=== PATIENT | male | born 1950 | race Caucasian/White ===

== ENCOUNTER 2016-07-29 14:56 | Inpatient (IN) | payer SELFPAY ==
[~2016-07-29] VITALS: Ht 182.9 cm; Wt 112.5 kg
[2016-07-29] VITALS (9 sets, daily range): BP systolic 152–191; BP diastolic 72–93
[2016-07-29 15:40] LABS: EOSINOPHIL (%) 0.6 % (0-5); EOSINOPHIL COUNT 0.1 K/uL (0-0.3); HEMATOCRIT 42.8 % (38.0-50.0); IMMATURE GRANULOCYTE (%) 0.2 % (0.0-0.7); IMMATURE GRANULOCYTE COUNT 0.2 K/uL; LYMPHOCYTE COUNT 0.8 K/uL (1.0-2.8); MCH 31.4 PG (29.0-34.0); MCV 89.5 FL (86-99); MEAN PLAT.VOLUME 9.4 uM^3 (9.0-12.4); MONOCYTE (%) 6.4 % (3-12); MONOCYTE COUNT 0.6 K/uL (0-0.8); NEUTROPHIL (%) 84.3 % (45-76); PLATELET COUNT 250 K/uL (156-360); RBC DIS.WIDTH-CV 11.9 % (11.8-14.6); RBC DIS.WIDTH-SD 38.2 % (39-53); RED BLOOD COUNT 4.78 M/uL (4.00-5.50); WHITE BLOOD COUNT 9.4 K/uL (4.1-10.2)
[2016-07-29 15:56] LABS: CHLORIDE 100 mEq/L (99-109); POTASSIUM 3.9 mEq/L (3.7-5.4); SODIUM 140 mEq/L (136-147)
[2016-07-29 15:57] LABS: GLUCOSE 224 mg/dL (70-99)
[2016-07-29 15:59] LABS: ANION GAP 13 MEQ/L (2-14)
[2016-07-29 16:01] LABS: GFR ESTIMATE (CALCULATED) > 59 mL/min/
[2016-07-29 16:02] LABS: TROP-I INTERPRETATION NEGATIVE; TROPONIN-I 0.02 ng/mL (0.0-0.30); UREA NITROGEN (BUN) 13 mg/dL (9-23)
[2016-07-29] MEDS ORDERED: PLEXUS BIO CLEANSE PO (17:18)
[2016-07-29 18:46] LABS: ADD MIUA? NO; BILIRUBIN NEGATIVE; BLOOD NEGATIVE; COLOR YELLOW ((YELLOW)); GLUCOSE (STRIP) 50; KETONES 20; LEUKOCYTES NEGATIVE; NITRITE NEGATIVE; PROTEIN (STRIP) NEGATIVE; SPECIFIC GRAVITY 1.016 (1.000-1.030); UROBILINOGEN 0.2 MG/DL (0.2-1.0)
[2016-07-29 20:48] LABS: METH RESISTANT S AUREUS PCR NEGATIVE (NEGATIVE)
[2016-07-29 20:51] LABS: PROBE CHECK PASS; SPECIMEN PROCESSING CONTROL PASS
[2016-07-30] VITALS (22 sets, daily range): BP systolic 120–190; BP diastolic 57–93
[2016-07-30 02:06] LABS: POINT-OF-CARE METER ID UU13113731
[2016-07-30 06:19] LABS: INTER. NORMALIZED RATIO 1.1; PROTHROMBIN TIME 10.9 (9.2-11.2); PTT 24.5 (25-32)
[2016-07-30 06:38] LABS: HEMATOCRIT 44.5 % (38.0-50.0); MCH 31.9 PG (29.0-34.0); MCHC 34.8 G/DL (30.0-36.0); MCV 91.6 FL (86-99); PLATELET COUNT 237 K/uL (156-360); RBC DIS.WIDTH-CV 12.2 % (11.8-14.6); RBC DIS.WIDTH-SD 40.8 % (39-53); RED BLOOD COUNT 4.86 M/uL (4.00-5.50)
[2016-07-30 06:39] LABS: ALKALINE PHOSPHATASE 81 IU/L (3-129); ANION GAP 10 MEQ/L (2-14); CHLORIDE 102 MEQ/L (99-109); GFR ESTIMATE (CALCULATED) > 59 mL/min/; GLUCOSE 232 mg/dL (70-99); POTASSIUM 3.2 MEQ/L (3.7-5.4); SAMPLE HEMOLYSIS CHECK 0; SAMPLE ICTERIC CHECK 0; SAMPLE LIPEMIA CHECK 0; SODIUM 140 MEQ/L (136-147); TOTAL BILIRUBIN 1.5 MG/DL (0.0-1.0); UREA NITROGEN (BUN) 9 mg/dL (9-23); WHITE BLOOD COUNT 12.5 K/uL (4.1-10.2)
[2016-07-30 11:02] LABS: Estimated Average Glucose 214 mg/dL (70-123); HEMOGLOBIN A1c (GLYCOHEMOGLOB) 9.1 % HGB (Below 5.7)
[2016-07-31] VITALS (25 sets, daily range): BP systolic 125–178; BP diastolic 64–95
[2016-07-31 09:06] LABS: POINT-OF-CARE METER ID UU13113748
[2016-07-31 11:49] LABS: ALKALINE PHOSPHATASE 86 IU/L (3-129); ANION GAP 11 MEQ/L (2-14); CHLORIDE 104 MEQ/L (99-109); GFR ESTIMATE (CALCULATED) > 59 mL/min/; MAGNESIUM 2.1 mg/dl (1.3-2.7); POTASSIUM 3.7 MEQ/L (3.7-5.4); SAMPLE HEMOLYSIS CHECK 0; SAMPLE ICTERIC CHECK 0; SAMPLE LIPEMIA CHECK 0; SODIUM 135 MEQ/L (136-147); TOTAL BILIRUBIN 1.2 MG/DL (0.0-1.0); UREA NITROGEN (BUN) 18 mg/dL (9-23)
[2016-07-31 11:59] LABS: GLUCOSE 349 mg/dL (70-99)
[2016-07-31 12:38] LABS: POINT-OF-CARE METER ID UU13113748
[2016-07-31 18:05] LABS: POINT-OF-CARE METER ID UU13113748
[2016-07-31 21:45] LABS: POINT-OF-CARE METER ID UU13113748
[2016-08-01] VITALS (16 sets, daily range): BP systolic 0–160; BP diastolic 0–98
[2016-08-01 02:27] LABS: POINT-OF-CARE METER ID UU13113731
[2016-08-01 06:00] LABS: POINT-OF-CARE METER ID UU13113731
[2016-08-01 10:18] LABS: POINT-OF-CARE METER ID UU13113731
[2016-08-02 03:13] VITALS: BP 150/90
[2016-08-02 06:16] LABS: POINT-OF-CARE METER ID UU14174216
[2016-08-02 08:10] VITALS: BP 184/82
[2016-08-02 08:45] LABS: HEMATOCRIT 42.9 % (38.0-50.0); MCH 30.8 PG (29.0-34.0); MCHC 33.8 G/DL (30.0-36.0); MCV 91.1 FL (86-99); PLATELET COUNT 248 K/uL (156-360); RBC DIS.WIDTH-CV 12.4 % (11.8-14.6); RED BLOOD COUNT 4.71 M/uL (4.00-5.50); WHITE BLOOD COUNT 16.1 K/uL (4.1-10.2)
[2016-08-02 09:23] LABS: ANION GAP 8 MEQ/L (2-14); CHLORIDE 108 MEQ/L (99-109); GFR ESTIMATE (CALCULATED) > 59 mL/min/; GLUCOSE 217 mg/dL (70-99); POTASSIUM 4.2 MEQ/L (3.7-5.4); SAMPLE HEMOLYSIS CHECK 0; SAMPLE ICTERIC CHECK 0; SAMPLE LIPEMIA CHECK 0; SODIUM 139 MEQ/L (136-147)
[2016-08-02 09:25] LABS: UREA NITROGEN (BUN) 30 mg/dL (9-23)
[2016-08-02 10:21] LABS: POINT-OF-CARE METER ID UU13113698; POINT-OF-CARE USER ID NUTSLF44
[2016-08-02 11:30] VITALS: BP 162/88
[2016-08-02 14:20] LABS: POINT-OF-CARE METER ID UU14174216; POINT-OF-CARE USER ID NUTSLF44
[2016-08-02 15:42] VITALS: BP 162/84
[2016-08-02 17:41] LABS: POINT-OF-CARE USER ID NUTSLF44
[2016-08-02 20:04] VITALS: BP 168/80
[2016-08-02 22:31] VITALS: BP 162/70
[2016-08-03 04:17] VITALS: BP 162/70
[2016-08-03 06:48] LABS: HEMATOCRIT 43.5 % (38.0-50.0); MCH 30.2 PG (29.0-34.0); MCHC 33.3 G/DL (30.0-36.0); MCV 90.6 FL (86-99); MEAN PLAT.VOLUME 10.2 uM^3 (9.0-12.4); PLATELET COUNT 259 K/uL (156-360); RBC DIS.WIDTH-CV 12.4 % (11.8-14.6); RBC DIS.WIDTH-SD 40.7 % (39-53); WHITE BLOOD COUNT 13.2 K/uL (4.1-10.2)
[2016-08-03 07:05] LABS: ANION GAP 8 MEQ/L (2-14); CHLORIDE 107 MEQ/L (99-109); GFR ESTIMATE (CALCULATED) > 59 mL/min/; GLUCOSE 251 mg/dL (70-99); POTASSIUM 3.7 MEQ/L (3.7-5.4); SAMPLE HEMOLYSIS CHECK 0; SAMPLE ICTERIC CHECK 0; SAMPLE LIPEMIA CHECK 0; SODIUM 139 MEQ/L (136-147); UREA NITROGEN (BUN) 29 mg/dL (9-23)
[2016-08-03 08:30] VITALS: BP 172/84
[2016-08-03 12:51] VITALS: BP 162/82
[2016-08-03 16:26] VITALS: BP 158/82
[2016-08-03 20:00] VITALS: BP 170/80
[2016-08-03 23:55] VITALS: BP 162/80
[2016-08-04 06:47] LABS: HEMATOCRIT 41.7 % (38.0-50.0); MCH 30.8 PG (29.0-34.0); MCHC 34.5 G/DL (30.0-36.0); MCV 89.1 FL (86-99); MEAN PLAT.VOLUME 9.9 uM^3 (9.0-12.4); PLATELET COUNT 245 K/uL (156-360); RBC DIS.WIDTH-CV 11.9 % (11.8-14.6); RBC DIS.WIDTH-SD 38.7 % (39-53); RED BLOOD COUNT 4.68 M/uL (4.00-5.50); WHITE BLOOD COUNT 11.8 K/uL (4.1-10.2)
[2016-08-04 07:11] LABS: ANION GAP 7 MEQ/L (2-14); CHLORIDE 106 MEQ/L (99-109); GFR ESTIMATE (CALCULATED) > 59 mL/min/; GLUCOSE 161 mg/dL (70-99); POTASSIUM 3.8 MEQ/L (3.7-5.4); SAMPLE HEMOLYSIS CHECK 0; SAMPLE ICTERIC CHECK 0; SAMPLE LIPEMIA CHECK 0; SODIUM 138 MEQ/L (136-147); UREA NITROGEN (BUN) 22 mg/dL (9-23)
[2016-08-04 07:51] VITALS: BP 182/89
[2016-08-04 09:59] VITALS: BP 142/86
[2016-08-04] MEDS ORDERED: AMLODIPINE BESYL5 MG PO (10:29)
[2016-08-04] MEDS ORDERED: APRESOLINE50 MG PO (10:29)
[2016-08-04] MEDS ORDERED: LOSARTAN POTAS100 MG PO (10:29)
[2016-08-04] MEDS ORDERED: DEXAMETHASONE4 MG PO (10:30)
[2016-08-04] MEDS ORDERED: LEVEMIR100 UNIT/2 SC (10:31)
[2016-08-04] MEDS ORDERED: ATORVASTATIN CA40 MG PO (10:33)
[2016-08-04] MEDS ORDERED: NOVOLOG PE100 UNITS/ SC (15:12)
[2016-08-04] MEDS ORDERED: REGLAN5 MG/ML IV (15:23)
[2016-08-04] MEDS ORDERED: APRESOLINE25 MG PO (15:29)
[2016-08-04] MEDS ORDERED: PEPCID20 MG/50 M IV (15:36)
[2016-08-04] MEDS ORDERED: NORVASC10 MG PO (15:37)
[2016-08-04] MEDS ORDERED: DEXTROSE 50%50 ML IV (15:39)
[2016-08-04] MEDS ORDERED: GLUCAGEN1 MG IM (15:40)
[2016-08-04] MEDS ORDERED: MORPHINE SULFA1 DOSE IV (15:41)
[2016-08-04] MEDS ORDERED: COLACE100 MG PO (15:42)
[2016-08-04] MEDS ORDERED: ANTIFUNGAL15 G1 TP (15:53)
== END 2016-08-04 11:40 | DRG 64 ==
LOC: EME 14:56 → EDOF 17:04 → 4WEST 17:04 → 4EAST 08-01 17:45
PROVIDERS: Hospitalist; Internal Medicine; Internal Medicine Critical Care Medicine; Internal Medicine Nephrology; Nurse Practitioner Family; Obstetrics & Gynecology; Physician Assistant
DX: I61.4 Nontraumatic intracerebral hemorrhage in cerebellum (principal); G93.6 Cerebral edema; L98.9 Disorder of the skin and subcutaneous tissue, unspecified; I16.1 Hypertensive emergency; E66.9 Obesity, unspecified; G91.9 Hydrocephalus, unspecified; R26.2 Difficulty in walking, not elsewhere classified; E87.6 Hypokalemia; R41.82 Altered mental status, unspecified; E11.65 Type 2 diabetes mellitus with hyperglycemia; R79.89 Other specified abnormal findings of blood chemistry; G44.89 Other headache syndrome; Z88.6 Allergy status to analgesic agent; Z88.8 Allergy status to other drugs, medicaments and biological substances; Z68.33 Body mass index [BMI] 33.0-33.9, adult
CPT/HCPCS: 70450; 71010; 80048; 80053; 80306 90; 81003; 82948; 83036; 83735; 84100; 84484; 85025; 85027; 85610; 85730; 87641; 93005; 94799; 97530 GO; 97530 GP; 99281; 99285; J1100; J1120; J1815; J2270; J2405; J2765; J3480; J7030; J7050; J8540; S0028

== ENCOUNTER 2016-08-02 15:56 | Inpatient (IN) | payer SELFPAY ==
[~2016-08-02] VITALS: Ht 182.9 cm; Wt 114.3 kg
[~2016-08-02 15:56] MED LIST: PLEXUS BIO CLEANSE PO
[2016-08-04] MEDS ORDERED: APRESOLINE50 MG PO (10:29)
[2016-08-04] MEDS ORDERED: LOSARTAN POTAS100 MG PO (10:29)
[2016-08-04] MEDS ORDERED: AMLODIPINE BESYL5 MG PO (10:29)
[2016-08-04] MEDS ORDERED: DEXAMETHASONE4 MG PO (10:30)
[2016-08-04] MEDS ORDERED: LEVEMIR100 UNIT/2 SC (10:31)
[2016-08-04] MEDS ORDERED: ATORVASTATIN CA40 MG PO (10:33)
[2016-08-04 12:05] VITALS: BP 174/81
[2016-08-04 12:13] LABS: POINT-OF-CARE METER ID UU14174215
[2016-08-04] MEDS ORDERED: NOVOLOG PE100 UNITS/ SC (15:12)
[2016-08-04 15:14] VITALS: BP 158/78
[2016-08-04] MEDS ORDERED: REGLAN5 MG/ML IV (15:23)
[2016-08-04] MEDS ORDERED: APRESOLINE25 MG PO (15:29)
[2016-08-04] MEDS ORDERED: PEPCID20 MG/50 M IV (15:36)
[2016-08-04] MEDS ORDERED: NORVASC10 MG PO (15:37)
[2016-08-04] MEDS ORDERED: DEXTROSE 50%50 ML IV (15:39)
[2016-08-04] MEDS ORDERED: GLUCAGEN1 MG IM (15:40)
[2016-08-04] MEDS ORDERED: MORPHINE SULFA1 DOSE IV (15:41)
[2016-08-04] MEDS ORDERED: COLACE100 MG PO (15:42)
[2016-08-04] MEDS ORDERED: ANTIFUNGAL15 G1 TP (15:53)
[2016-08-04 16:49] LABS: POINT-OF-CARE METER ID UU14174215
[2016-08-04 21:39] LABS: POINT-OF-CARE METER ID UU14174215
[2016-08-04 23:22] VITALS: BP 175/84
[2016-08-05 05:38] VITALS: BP 150/80
[2016-08-05 05:59] LABS: HEMATOCRIT 43.2 % (38.0-50.0); MCH 31.1 PG (29.0-34.0); MCHC 35.4 G/DL (30.0-36.0); MCV 87.8 FL (86-99); MEAN PLAT.VOLUME 10.3 uM^3 (9.0-12.4); PLATELET COUNT 265 K/uL (156-360); RBC DIS.WIDTH-CV 11.9 % (11.8-14.6); RBC DIS.WIDTH-SD 38.5 % (39-53); RED BLOOD COUNT 4.92 M/uL (4.00-5.50); WHITE BLOOD COUNT 14.9 K/uL (4.1-10.2)
[2016-08-05 06:30] LABS: ALKALINE PHOSPHATASE 68 IU/L (3-129); ANION GAP 7 MEQ/L (2-14); CHLORIDE 101 MEQ/L (99-109); GFR ESTIMATE (CALCULATED) > 59 mL/min/; GLUCOSE 125 mg/dL (70-99); POTASSIUM 3.7 MEQ/L (3.7-5.4); SAMPLE HEMOLYSIS CHECK 0; SAMPLE ICTERIC CHECK 0; SAMPLE LIPEMIA CHECK 0; SODIUM 138 MEQ/L (136-147); TOTAL BILIRUBIN 1.4 MG/DL (0.0-1.0); UREA NITROGEN (BUN) 20 mg/dL (9-23)
[2016-08-05 07:09] LABS: POINT-OF-CARE METER ID UU13113720
[2016-08-05 11:49] LABS: POINT-OF-CARE METER ID UU13113720
[2016-08-05 15:54] VITALS: BP 168/94
[2016-08-05 16:01] VITALS: BP 158/84
[2016-08-05 16:27] LABS: POINT-OF-CARE METER ID UU13113720
[2016-08-05 21:30] LABS: POINT-OF-CARE METER ID UU13113720
[2016-08-06 05:51] VITALS: BP 150/68
[2016-08-06 07:10] LABS: POINT-OF-CARE METER ID UU13113720
[2016-08-06 11:33] LABS: POINT-OF-CARE METER ID UU13113720
[2016-08-06 15:42] VITALS: BP 144/64
[2016-08-06 16:33] LABS: POINT-OF-CARE METER ID UU13113720
[2016-08-06 21:01] LABS: POINT-OF-CARE METER ID UU13113720
[2016-08-07 04:55] VITALS: BP 176/91
[2016-08-07 07:22] LABS: POINT-OF-CARE METER ID UU13113720
[2016-08-07 12:24] LABS: POINT-OF-CARE METER ID UU13113720
[2016-08-07] MEDS ORDERED: AMLODIPINE BESYL5 MG PO (13:18)
[2016-08-07] MEDS ORDERED: ATORVASTATIN CA40 MG PO (13:18)
[2016-08-07] MEDS ORDERED: LOSARTAN POTAS100 MG PO (13:18)
[2016-08-07] MEDS ORDERED: DEXAMETHASONE4 MG PO (13:18)
[2016-08-07] MEDS ORDERED: LEVEMIR100 UNIT/2 SC (13:18)
[2016-08-07] MEDS ORDERED: NOVOLOG PE100 UNITS/ SC (13:18)
[2016-08-07] MEDS ORDERED: APRESOLINE50 MG PO (13:18)
[2016-08-07 15:59] VITALS: BP 179/90
== END 2016-08-07 16:58 | disposition home or self-care (01) | DRG 56 ==
LOC: 3WEST 15:56
PROVIDERS: Physical Medicine & Rehabilitation Pain Medicine
PROC: F07M0ZZ Range of Motion and Joint Mobility Treatment of Musculoskeletal System - Whole Body (ICD-10-PCS; principal; 2016-08-04)
DX: I69.354 Hemiplegia and hemiparesis following cerebral infarction affecting left non-dominant side (principal); R26.2 Difficulty in walking, not elsewhere classified; G93.6 Cerebral edema; E66.9 Obesity, unspecified; R41.0 Disorientation, unspecified; I10 Essential (primary) hypertension; R51 Headache; Z68.34 Body mass index [BMI] 34.0-34.9, adult; E11.36 Type 2 diabetes mellitus with diabetic cataract; R21 Rash and other nonspecific skin eruption
CPT/HCPCS: 80053; 82948; 85027; 97110 GO; 97112 GO; 97530 GP; J1815; J8540